=== PATIENT | female | born 1960 | race Caucasian/White ===

== ENCOUNTER 2024-03-13 16:34 | Emergency (ER) | payer OTHER, MEDICAID ==
[~2024-03-13] VITALS: Ht 167.6 cm; Wt 62.6 kg
[2024-03-13 16:40] VITALS: BP_SYST 135; PULSE 85; RESP 18; TEMP 98; O2SAT 98
[2024-03-13] MEDS: IPRATROPIUM/ALBUTEROL SULFATE 3 ML AMPUL.NEB (DUONEB) INH ONE (18:06)
[2024-03-13 18:19] LABS: BASOPHILS % (AUTO) 0.6 % (0.0-2.0); EOSINOPHILS # (AUTO) 0.1 K/uL (0.0-0.4); EOSINOPHILS % (AUTO) 1.2 % (0.0-4.0); HEMATOCRIT 38.6 % (36-48); HEMOGLOBIN 13.2 g/dL (12.0-16.0); LYMPHOCYTES # (AUTO) 0.9 K/uL (1.0-5.5); LYMPHOCYTES % (AUTO) 12.7 % (20.5-51.5); MEAN CORPUSCULAR HEMOGLOBIN 29 pg (27-31); MEAN CORPUSCULAR HGB CONC 34 % (32-36); MEAN CORPUSCULAR VOLUME 85 fL (79.0-98.0); MONOCYTES # (AUTO) 0.7 K/uL (0.0-1.0); MONOCYTES % (AUTO) 10.3 % (1.7-9.3); NEUTROPHILS % (AUTO) 75.2 % (40.0-70.0); PLATELET COUNT (AUTO) 270 K/uL (130-430); RED BLOOD CELL COUNT(AUTO) 4.54 MIL/uL (4.2-6.2); RED CELL DISTRIBUTION WIDTH 13.9 % (9.0-15.0); WHITE BLOOD COUNT (AUTO) 6.7 K/uL (4.8-10.8)
[2024-03-13] MEDS: ACETAMINOPHEN 325 MG TABLET PO ONE (18:23)
[2024-03-13 19:00] LABS: INFLUENZA TYPE A Negative (NEGATIVE); INFLUENZA TYPE B NEGATIVE (NEGATIVE)
[2024-03-13 19:05] LABS: COVID19 ANTIGEN SOFIA FIA POSITIVE (NEGATIVE)
[2024-03-13 19:05] LABS: ALANINE AMINOTRANSFERASE 27 U/L (12-78); ALBUMIN 3.8 g/dL (3.4-4.8); ANION GAP 6 (5-15); ASPARTATE AMINOTRANSFERASE 20 U/L (10-37); CALCIUM 9.1 mg/dL (8.4-11.0); CARBON DIOXIDE 30 mmol/L (23-29); CHLORIDE 100 mmol/L (98-107); CREATININE 0.81 mg/dL (0.55-1.30); GFR AFRICAN AMERICAN 91 mL/min (>90); GLUCOSE 113 mg/dL (74-106); POTASSIUM 3.5 mmol/L (3.5-5.1); SODIUM SERUM 136 mmol/L (136-145); TOTAL BILIRUBIN 0.3 mg/dL (0.0-1.0); TOTAL PROTEIN, SERUM 7.5 g/dL (6.4-8.3); UREA NITROGEN, BLOOD 8 mg/dL (8-21)
[2024-03-13 19:20] LABS: INR 0.9 (0.8-1.2); PROTHROMBIN TIME 10.1 SECS (9.5-12.5)
[2024-03-13 19:24] LABS: GFR NON AFRICAN-AMERICAN 75 mL/min (>90)
[2024-03-13] MEDS: NACL 0.9% 1,000 ML IV ONE (19:44)
[2024-03-13] MEDS ORDERED: [UNRECOGNIZED DRUG - CODE] TP (20:11)
[2024-03-13] MEDS ORDERED: ZOLP10TA2 PO (20:11)
[2024-03-13] MEDS ORDERED: LEVO125T8 PO (20:11)
[2024-03-13] MEDS ORDERED: LIOT5TAB11 PO (20:14)
[2024-03-13] MEDS ORDERED: iohexoL 350 mgI/mL, 100 ML INFUS..BTL IV ONE (20:15)
[2024-03-13] MEDS: ALBUTEROL SULFATE 0.083% 2.5 MG/3 ML VIAL.NEB INH ONE (21:01)
[2024-03-13] MEDS: IPRATROPIUM BROM 0.5 MG/2.5 ML VIAL.NEB (ATROVENT) INH ONE (21:01)
[2024-03-13] MEDS: LORazepam 2 MG/ML VIAL IVP ONE (21:04)
[2024-03-14 07:55] VITALS: BP_SYST 100; PULSE 90; RESP 20; TEMP 98; O2SAT 98
== END 2024-03-14 07:48 | disposition left against medical advice (07) ==
LOC: SED 16:34 → UNDOADMIN 03-14 01:19 → STU 03-14 01:19 → UNDODISIN 03-14 08:08
DX: R07.89 Other chest pain (principal); C79.89 Secondary malignant neoplasm of other specified sites; Z20.822 Contact with and (suspected) exposure to COVID-19; J45.909 Unspecified asthma, uncomplicated; Z90.49 Acquired absence of other specified parts of digestive tract; Z90.710 Acquired absence of both cervix and uterus; Z98.890 Other specified postprocedural states; Z88.6 Allergy status to analgesic agent; Z79.899 Other long term (current) drug therapy; Z79.2 Long term (current) use of antibiotics
CPT/HCPCS: 80053; 85025; 85379; 85610; 84484; 36415; 93005; 71045; 71275; 94640; 99285; 96361; 96374; 87804 ×2; 87426; Q9967; J2060; J7030; G0378